=== PATIENT | female | born 1990 | race African-American/Black ===

== ENCOUNTER 2016-07-02 06:19 | Inpatient (IN) ==
[2016-07-02] MEDS ORDERED: ONDANSETRON 4 MG/2 ML VIAL IV PRN (07:55)
[2016-07-02] MEDS ORDERED: BUTORPHANOL 2 MG/ML VIAL IV PRN (07:55)
[2016-07-02] MEDS ORDERED: MEPERIDINE 50 MG/1 ML VIAL IV PRN (07:55)
[2016-07-02] MEDS ORDERED: OXYTOCIN/LR 20 UNIT/1,000 ML BAG IV SCH (08:00)
[2016-07-02 08:26] LABS: Basophils % 0.5 % (0.0-0.8); Eosinophils # 0.1 10*3/uL (0.0-0.87); Eosinophils % 1.4 % (0.00-10.9); Hematocrit 35.8 VOL% (35.7-47.0); Hemoglobin 12.1 GM/DL (12.0-16.0); Immature Granulocytes % 0.4 %; Immature Granulocytes Absolute 0.03 #; Lymphocytes # 1.9 10*3/uL (1.4-4.0); Lymphocytes % 24.6 % (21.3-54.2); Mean Corpuscular HGB Conc 33.8 GM/DL (32-36); Mean Corpuscular Hemoglobin 25 PG (27-34); Mean Corpuscular Volume 72.5 FL (87-102); Mean Platelet Volume 11.3 FL (9.6-12.0); Monocytes # 0.5 10*3/uL (0.11-0.8); Monocytes % 6.5 % (1.7-12.7); Neutrophils # 5.3 10*3/uL (1.4-7.4); Neutrophils % 66.6 % (38.7-73.9); Platelet Count 199 T/CUMM (130-400); Red Blood Count 4.94 MC/CUMM (3.8-5.5); Red Cell Distribution Width 19.1 % (9.3-17.3); White Blood Count 7.9 T/CUMM (4-12)
[2016-07-02] MEDS ORDERED: AMPICILLIN INJ 2,000 MG in SODIUM CHLORIDE 0.9% 100 ML IV ONE (08:41)
[2016-07-02 08:55] LABS: Albumin 2.6 G/DL (3.4-5.0); Bilirubin,Total 0.8 MG/DL (0.2-1.0); Calcium 8.8 MG/DL (8.5-10.1); Osmolality,Calculated 273.5 MOS/KG (273-304); Potassium 4.4 MMOL/L (3.5-5.1); Total Protein 6.5 G/DL (6.4-8.3)
[2016-07-02] MEDS ORDERED: FAMOTIDINE 20 MG/2 ML VIAL IV ONE (09:23)
[2016-07-02] MEDS ORDERED: CITRIC ACID/SODIUM CITRATE 30 ML UDCUP PO ONE (09:23)
[2016-07-02] MEDS ORDERED: ePHEDrine 50 MG/ML AMP IV PRN (09:23)
[2016-07-02] MEDS ORDERED: diphenhydrAMINE 50 MG/1 ML VIAL IV PRN ×2 (09:23)
[2016-07-02] MEDS ORDERED: LACTATED RINGERS 1,000 ML IV ONE (09:23)
[2016-07-02] MEDS ORDERED: LACTATED RINGERS 500 ML IV ONE (09:23)
[2016-07-02] MEDS ORDERED: PROMETHAZINE 25 MG/1 ML VIAL IM ONE (09:23)
[2016-07-02] MEDS ORDERED: hydrOXYzine HCL 25 MG/1 ML VIAL IM PRN (09:23)
[2016-07-02] MEDS: LACTATED RINGERS 1,000 ML IV SCH ×2 (09:30→23:59)
[2016-07-02] MEDS: AMPICILLIN INJ 1,000 MG in SODIUM CHLORIDE 0.9% 100 ML IV SCH (09:36)
[2016-07-02] MEDS: fentaNYL 2 MCG/ROPIV 0.2% EPID 150 ML EPIDURAL SCH (10:40)
[2016-07-02 12:02] LABS: Apearance,Urine CLEAR (Clear); Bilirubin,Urine Negative (Negative); Blood, Urine Negative (Negative); Glucose,Urine (UA) Negative (Negative); Ketones,Urine 20 mg/dL (Negative); Mucus,Urine Occasional /LPF (Occasional); Nitrite,Urine Negative (Negative); Protein,Urine Negative; RBC,Urine 1 /HPF (0-4); Squamous Epithelial Cell,Urine Occasional /HPF (0-10); Urine Color Straw (Yellow); Urine Specific Gravity 1.006 (1.001-1.035); Urine Urobilinogen < 2.0 EU/DL (0.2-1.0); WBC,Urine <1 /HPF (0-6)
--- NOTE | 2016-07-02 12:21 | OB/GYN History & Physical ---
History of Present Illness Chief complaint: For elective induction of labor History of present illness: Ms. Mcelroy is a 26 year old female who is a 2 para 1 who presented to the labor department for elective induction of labor due to term . Her KAEL is 07/09/2016 for an estimated gestational age of 39 weeks and 1 day. The risk and benefits of been thoroughly discussed with this patient and significant other and plan of care has been discussed with Dr. Walls, all parties are in agreement plan. The patient received her care through the [facility] and she received routine care. Her course was complicated by diabetes for which the patient maintain control with diet and insulin. The patient has had a previous vaginal delivery that infant weighed 8 pounds she reported no complications with that . labs: She is a positive, RPR is nonreactive, hepatitis B negative, HIV negative , the patient did have a positive chlamydia during this for which he was treated and test of cure was negative, rubella was immune, and GBS culture is positive. Home Medications Medication Instructions Recorded Confirmed Type Pnv No.95/Ferrous Fum/Folic AC 1 tablet PO DAILY 04/28/16 07/02/16 History [ Tablet] Insulin NPH [HumuLIN N] 10 unit SUBCUT AC BREAKFAST 06/15/16 07/02/16 History Allergies Allergy/AdvReac Type Severity Reaction Status Date / Time No Known Allergies Allergy Verified 06/22/16 13:28 12 point system: reviewed and no additional remarkable complaints except as stated Medical,Surgical,& Family Hx - Medical History Medical History: noncontributory Endocrine: History of: Diabetes Mellitus (NIDDM) (PT IS GESTATIONAL DIABETIC) Musculoskeletal: No history of: Amputation Reproductive: No history of: Ectopic , Complication - Surgical History Surgical History: noncontributory Thoracic Surgeries: Patient denies;: Organ Transplant, Lobectomy Neurologic Surgeries: Patient denies: Neurologic Surgery Abdominal Surgeries: Patient denies: Abdominal Surgery Reproductive Surgeries: Patient denies;: Section, Gynecologic Surgery - Family History Family History: Reports;: Family Hypertension Denies;: Family Anesthesia Reaction, Family Cancer, Family Diabetes, Family Heart Disease (Mother), Family Psychiatric Problems, Family Stroke - Social History Smoking Status: Never smoker Frequency of Alcohol Use: None Type of Drug Use: None Marital Status: Single Lives With:: Significant Other Functional capacity: independent ambulation 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 General appearance: no acute distress - Antepartum / Post Antepartum Exam Cervix -Dilatation: 5 cm Effacement: 70% Station: -1 Rupture: Intact Presentation: Vertex Heart Rate: 140s-150s Breast: bilateral: normal Abdomen obstetrics: Present: bowel sounds normal Vulva: bilateral: normal Vagina: Present: normal moisture, discharge (Bloody show) Uterus exam: Present: enlarged - Head Head exam: Present: normal inspection - ENT ENT exam: Present: normal exam - Respiratory Respiratory exam: Present: clear to auscultation bilaterally - Cardiovascular Cardiovascular exam: Present: regular rate and rhythm - GI/Abdominal GI/Abdominal exam: Present: normal bowel sounds, soft - Extremities Exam Extremities exam: Present: normal inspection - Back Exam Back exam: Present: normal inspection - Neurological Exam Neurological exam: Present: alert, oriented X3 - Psychiatric Psychiatric exam: Present: normal affect, normal mood - Skin Skin exam: Present: normal color, warm Assessment and Plan (1) Term Status: Acute Assessment and plan: Admit, IV fluids IV Pitocin per protocol Artificial rupture membranes when appropriate Epidural anesthesia if desired Internal monitors if indicated Anticipate Current Visit: Yes (2) Gestational diabetes Status: Acute Current Visit: No Results - Labs CBC & BMP: 07/02/16 08:15 07/02/16 08:15
--- NOTE | 2016-07-02 12:38 | Event Note ---
Stage I of labor Artificial rupture membranes clear fluid IV Pitocin Epidural anesthetic External monitoring category 1 Stage II Delivery of a female infant nuchal cord 1 Cord blood cord gas obtained Delivery time is 12:13 PM Apgars was 8 at 1 minute 9 at 5 minutes weight is pending at this time Female infant Stage III Spontaneous labor the placenta Estimated blood loss less than 300 cc 3 cord vessels Placenta was delivered manually at 12:15 PM Mother stable nursery in attendance.
--- NOTE | 2016-07-02 14:15 | Anesthesia Post-Op ---
Anesthesia Post OP - Post Ansesthetic Evaluation Patient seen in post op: Yes Resp: within normal limits CV: within normal limits Mental: within normal limits Temp: within normal limits [id number]: within normal limits Nausea and Vomiting: within normal limits Pain: within normal limits
[2016-07-02] MEDS: IBUPROFEN 800 MG TABLET PO PRN (20:00)
[2016-07-02] MEDS ORDERED: IBUPROFEN 800 MG TABLET ONE (20:06)
[2016-07-03] MEDS: LACTATED RINGERS 1,000 ML IV SCH (00:01)
[2016-07-03] MEDS: fentaNYL 2 MCG/ROPIV 0.2% EPID 150 ML EPIDURAL SCH (05:09)
[2016-07-03] MEDS: AMPICILLIN INJ 1,000 MG in SODIUM CHLORIDE 0.9% 100 ML IV SCH (05:09)
[2016-07-03 06:49] LABS: Hematocrit 29.2 VOL% (35.7-47.0); Hemoglobin 10.1 GM/DL (12.0-16.0); Mean Corpuscular HGB Conc 34.6 GM/DL (32-36); Mean Corpuscular Hemoglobin 25 PG (27-34); Mean Corpuscular Volume 72.1 FL (87-102); Red Blood Count 4.05 MC/CUMM (3.8-5.5); White Blood Count 10.9 T/CUMM (4-12)
[2016-07-03 06:50] LABS: Basophils # 0.1 10*3/uL (0.0-0.2); Basophils % 0.5 % (0.0-0.8); Eosinophils # 0.1 10*3/uL (0.0-0.87); Eosinophils % 1.3 % (0.00-10.9); Immature Granulocytes % 0.5 %; Immature Granulocytes Absolute 0.05 #; Lymphocytes # 2.3 10*3/uL (1.4-4.0); Lymphocytes % 20.6 % (21.3-54.2); Monocytes % 8.7 % (1.7-12.7); Neutrophils # 7.5 10*3/uL (1.4-7.4); Neutrophils % 68.4 % (38.7-73.9); Platelet Count 193 T/CUMM (130-400); Red Cell Distribution Width 18.8 % (9.3-17.3)
[2016-07-03 07:19] LABS: Hypochromasia 2+; Microcytosis 1+
[2016-07-03] MEDS: DOCUSATE SODIUM 100 MG CAPSULE PO SCH ×2 (08:46→20:00)
--- NOTE | 2016-07-03 14:19 | OB/GYN Progress Note ---
Assessment and Plan (1) Term Status: Acute Assessment and plan: Admit, IV fluids IV Pitocin per protocol Artificial rupture membranes when appropriate Epidural anesthesia if desired Internal monitors if indicated Anticipate Current Visit: Yes (2) Gestational diabetes Status: Acute Current Visit: No (3) Vaginal delivery Status: Acute Assessment and plan: Initiate routine orders. 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 Exam KEY HOLDER - Constitutional Vitals: Vital Signs Temp Pulse Resp BP Pulse Ox 07/03/16 11:33 97.5 F L 74 20 128/82 98 07/03/16 07:24 97.8 F 77 18 126/84 97 07/03/16 04:00 97.6 F 71 18 118/74 99 07/03/16 02:00 20 07/03/16 00:00 97.9 F 71 18 125/78 99 07/02/16 20:00 97.3 F L 79 18 135/102 99 07/02/16 15:50 97.3 F L 72 18 126/88 99 07/02/16 15:20 97.3 F L 71 18 135/83 99 General appearance: no acute distress - Antepartum / Post Post Exam Breast: bilateral: normal Abdomen obstetrics: Present: bowel sounds normal Vagina: Present: normal moisture, discharge (Light lochia rubra) Cervix: Present: normal Uterus exam: Present: enlarged (Fundus firm and midline) Anus/Rectum: Present: normal perianal skin - Head Head exam: Present: normal inspection - Respiratory Respiratory exam: Present: clear to auscultation bilaterally - Cardiovascular Cardiovascular exam: Present: regular rate and rhythm - GI/Abdominal GI/Abdominal exam: Present: normal bowel sounds, soft - Extremities Exam Extremities exam: Present: normal inspection - Back Exam Back exam: Present: normal inspection - Neurological Exam Neurological exam: Present: alert, oriented X3 - Psychiatric Psychiatric exam: Present: normal affect, normal mood - Skin Skin exam: Present: normal color, warm Results - Labs CBC & BMP: 07/03/16 06:13 07/02/16 08:15
--- NOTE | 2016-07-03 14:50 | Discharge Summary ---
Hospital Course - Hospital Course Hospital Course: Ms. Mcelroy presented for elective induction of labor due to term . She subsequently delivered a viable infant with no complications. She has followed a normal course and she has done well. Her bleeding is minimal with no odor. She is voiding without difficulty. Her vital signs and lab values are stable. She is bonding well with her infant. Her perineum is intact with no edema. Her fundus is firm and midline. She has normal bowel sounds. She will be discharged home with prescriptions for pain and follow-up appointment in our office. Diagnosis - Discharge Diagnosis (1) Term Status: Acute (2) Gestational diabetes Status: Acute (3) Vaginal delivery Status: Acute Specialty Discharge - Follow Up or Referrals Follow up with: Radha Walls MD [Physician] - 08/13/16 10:30 am Discharge Plan - Discharge Data Disposition: Disch To Home/Self Care Condition at Discharge: Stable Discharge Diet: advance to your usual diet Activity: resume usual activities as tolerated Hygiene: may shower Weight Bearing at Discharge: weight bear as tolerated Driving: no restrictions Contact your physician if you experience:: fever over 101, pain uncontrolled by pain medications - Discharge Medications New Ibuprofen Tab [Motrin Tab] 800 mg PO Q6H PRN #45 tablet PRN Reason: Pain Acetamin/Codeine 300-30 Tab [Tylenol/Codeine #3] 2 tablet PO Q4H #30 tablet Continue Pnv No.95/Ferrous Fum/Folic AC [ Tablet] 1 tablet PO DAILY Insulin NPH [HumuLIN N] 10 unit SUBCUT AC BREAKFAST - Follow Up or Referral Follow Up: Radha Walls MD [Physician] - 08/13/16 10:30 am - Forms/Instructions Instructions: Vaginal Delivery (DC), Bleeding (DC) Exam - Constitutional Vitals: Period Temp Pulse Resp BP Sys/Smith Pulse Ox Last 24 Hr 97.3 F-97.9 F 71-79 18-20 118-135/74-102 97-99 General appearance: no acute distress - Head Head exam: Present: normal inspection - Respiratory Respiratory exam: Present: clear to auscultation bilaterally - Cardiovascular Cardiovascular exam: Present: regular rate and rhythm - GI/Abdominal GI/Abdominal exam: Present: normal bowel sounds, soft - Extremities Exam Extremities exam: Present: normal inspection - Back Exam Back exam: Present: normal inspection - Neurological Exam Neurological exam: Present: alert, oriented X3 - Psychiatric Psychiatric exam: Present: normal affect, normal mood - Skin Skin exam: Present: normal color, warm Discharge Results Labs on day of discharge: Labs from last 24 hours 07/03/16 07/03/16 07/03/16 06:13 05:41 00:38 WBC 10.9 D RBC 4.05 Hgb 10.1 L D Hct 29.2 L MCV 72.1 L MCH 25 L MCHC 34.6 RDW 18.8 H Plt Count 193 MPV 12.0 Neut % (Auto) 68.4 Lymph % (Auto) 20.6 L [place] % (Auto) 8.7 Eos % (Auto) 1.3 Baso % (Auto) 0.5 Neut # (Auto) 7.5 H Lymph # (Auto) 2.3 [place] # (Auto) 1.0 H Eos # (Auto) 0.1 Baso # (Auto) 0.1 Immature Gran % 0.5 Nucleated RBC % 0.0 Immature Gran # 0.05 Nucleated RBCs # 0.00 Hypochromasia 2+ Microcytosis 1+ POC Glucose 80 133 H 07/02/16 18:35 WBC RBC Hgb Hct MCV MCH MCHC RDW Plt Count MPV Neut % (Auto) Lymph % (Auto) [place] % (Auto) Eos % (Auto) Baso % (Auto) Neut # (Auto) Lymph # (Auto) [place] # (Auto) Eos # (Auto) Baso # (Auto) Immature Gran % Nucleated RBC % Immature Gran # Nucleated RBCs # Hypochromasia Microcytosis POC Glucose 138 H DS: Provider Date of admission: 07/02/16 07:56 Primary care physician: . No PCP Attending physician on admission: Radha Walls MD Consults: 07/02/16 07:56 Consult to Anesthesiology [CONS] Routine Consulting Provider: Reason for Anesthesiology: Epidural Consult Comment: Epidural for pain managment Discharging clinician: Karolina Lozada CNM Expected date of discharge: 07/04/16
[2016-07-03] MEDS: IBUPROFEN 800 MG TABLET PO PRN (20:05)
[2016-07-04 09:13] VITALS: BP 135/71
[2016-07-04] MEDS: DOCUSATE SODIUM 100 MG CAPSULE PO SCH (09:30)
== END 2016-07-04 13:10 | disposition home or self-care (01) | DRG 560 ==
LOC: N.LD 06:19 → N.LDOUT 06:19 → N.LD 07:56 → N.OB 15:40
PROVIDERS: ADMIT Obstetrics & Gynecology; ATTEND Obstetrics & Gynecology

== ENCOUNTER 2018-06-14 11:00 | Inpatient (IN) ==
[2018-06-14] MEDS ORDERED: LACTATED RINGERS 1,000 ML IV ONE (11:17)
[2018-06-14] MEDS ORDERED: BUTORPHANOL 1 MG/ML VIAL IV PRN (11:17)
[2018-06-14] MEDS ORDERED: ONDANSETRON 4 MG/2 ML VIAL IV PRN (11:17)
[2018-06-14] MEDS ORDERED: MEPERIDINE 50 MG/1 ML VIAL IV PRN (11:17)
[2018-06-14] MEDS ORDERED: LACTATED RINGERS 1,000 ML IV SCH (11:30)
[2018-06-14] MEDS ORDERED: OXYTOCIN/LR 20 UNIT/1,000 ML BAG IV SCH (11:30)
[2018-06-14] MEDS ORDERED: AMPICILLIN INJ 2,000 MG in SODIUM CHLORIDE 0.9% 100 ML IV ONE (12:00)
[2018-06-14 12:16] LABS: INR 0.9; PT Patient Result 9.4 SECS; Partial Thromboplastin Time 26.1 SECS (0-40)
[2018-06-14] MEDS ORDERED: AMPICILLIN 2,000 MG VIAL ONE (12:18)
[2018-06-14 12:25] LABS: Basophils % 0.5 % (0.0-0.8); Eosinophils % 0.5 % (0.00-10.9); Hematocrit 30.4 VOL% (35.7-47.0); Hemoglobin 9.9 GM/DL (12.0-16.0); Immature Granulocytes % 0.7 %; Immature Granulocytes Absolute 0.06 #; Lymphocytes # 1.8 10*3/uL (1.4-4.0); Lymphocytes % 21.7 % (21.3-54.2); Mean Corpuscular HGB Conc 32.6 GM/DL (32-36); Mean Corpuscular Volume 69.6 FL (87-102); Mean Platelet Volume 10.8 FL (9.6-12.0); Monocytes % 6.9 % (1.7-12.7); Neutrophils % 69.7 % (38.7-73.9); Platelet Count 229 T/CUMM (130-400); Red Blood Count 4.37 MC/CUMM (3.8-5.5); Red Cell Distribution Width 18.2 % (9.3-17.3); White Blood Count 8.1 T/CUMM (4-12)
[2018-06-14] MEDS ORDERED: OXYTOCIN/LR 20 UNIT/1,000 ML BAG IV ONE ×3 (12:28→21:15)
[2018-06-14] MEDS ORDERED: hydrALAZINE 20 MG/1 ML VIAL ONE (12:28)
[2018-06-14 12:29] LABS: Hypochromasia 1+
[2018-06-14 12:30] LABS: Platelet Estimate Adequate
[2018-06-14 12:40] LABS: Alanine Aminotransferase 12 U/L (13-56); Albumin 2.4 G/DL (3.4-5.0); Alkaline Phosphatase 163 U/L (45-117); Aspartate Amino Transferase 10 U/L (0-37); Bilirubin,Direct < 0.100 MG/DL (0.0-0.20); Bilirubin,Total < 0.39 MG/DL (0.2-1.0); Blood Urea Nitrogen 8 MG/DL (7-18); Calcium 8.8 MG/DL (8.5-10.1); Glucose 121 MG/DL (74-106); Osmolality,Calculated 271.8 MOS/KG (273-304); Total Protein 6.6 G/DL (6.4-8.3); Uric Acid 4.4 MG/DL (2.6-6.0)
[2018-06-14] MEDS: hydrALAZINE 20 MG/1 ML VIAL IV PRN ×2 (12:40→13:10)
[2018-06-14] MEDS ORDERED: ePHEDrine 50 MG/ML AMP IV PRN (13:06)
[2018-06-14] MEDS ORDERED: FAMOTIDINE 20 MG/2 ML VIAL IV ONE (13:06)
[2018-06-14] MEDS ORDERED: CITRIC ACID/SODIUM CITRATE 30 ML UDCUP PO ONE (13:06)
[2018-06-14] MEDS ORDERED: NALOXONE 0.4 MG/ML VIAL IV PRN (13:06)
[2018-06-14] MEDS ORDERED: PROMETHAZINE 25 MG/1 ML VIAL IM ONE (13:06)
[2018-06-14] MEDS ORDERED: hydrOXYzine HCL 25 MG/1 ML VIAL IM PRN (13:06)
[2018-06-14] MEDS ORDERED: diphenhydrAMINE 50 MG/1 ML VIAL IV PRN ×2 (13:06)
[2018-06-14] MEDS ORDERED: fentaNYL 2 MCG/ROPIV 0.2% EPID 100 ML EPIDURAL SCH (13:30)
[2018-06-14] MEDS ORDERED: miSOPROStol 200 MCG TABLET ONE (15:52)
[2018-06-14] MEDS ORDERED: CARBOPROST TROMETHAMINE 250 MCG/ML AMP IM ONE (15:53)
[2018-06-14] MEDS ORDERED: AMPICILLIN INJ 1,000 MG in SODIUM CHLORIDE 0.9% 100 ML IV SCH (16:00)
[2018-06-14 18:12] LABS: Cord Venous Blood PCO2 55.4 MMHG; Cord Venous Blood PO2 22.6
[2018-06-14] MEDS ORDERED: WITCH HAZEL PADS 100/JAR TOP PRN (19:21)
[2018-06-14] MEDS ORDERED: HYDROCORTISONE 2.5% RECTAL CREAM 30 GM TUBE TOP PRN (19:21)
[2018-06-14] MEDS ORDERED: oxyCODONE/ACETAMINOPHEN 5-325 MG TABLET PO PRN ×2 (19:21)
[2018-06-14] MEDS ORDERED: BISACODYL 10 MG SUPP RECTAL PRN (19:21)
[2018-06-14] MEDS ORDERED: ACETAMINOPHEN/CODEINE 300-30 MG TABLET PO PRN (19:21)
[2018-06-14] MEDS ORDERED: ACETAMINOPHEN 325 MG TABLET PO PRN (19:21)
[2018-06-14] MEDS ORDERED: MEASLES/MUMPS/RUBELLA VACCINE 0.5 ML VIAL SUBCUT ONE (19:21)
[2018-06-14] MEDS ORDERED: LANOLIN 50% CREAM 0.3 OZ TUBE TOP PRN (19:21)
[2018-06-14] MEDS ORDERED: BENZOCAINE 20%/MENTHOL 0.5% SPRAY 56 GM CAN TOP PRN (19:21)
[2018-06-14] MEDS ORDERED: RHO(D) IMMUNE GLOBULIN 300 MCG SYRINGE IM ONE (19:21)
[2018-06-14] MEDS ORDERED: DIPH/TET/ACEL PERT BOOSTER VACCINE 0.5 ML VIAL IM ONE (19:21)
[2018-06-14] MEDS: IBUPROFEN 800 MG TABLET PO PRN (20:45)
[2018-06-14] MEDS: DOCUSATE SODIUM 100 MG CAPSULE PO SCH (21:11)
[2018-06-15] MEDS: IBUPROFEN 800 MG TABLET PO PRN (04:57)
[2018-06-15 05:54] LABS: Basophils % 0.3 % (0.0-0.8); Eosinophils % 0.3 % (0.00-10.9); Hematocrit 27.6 VOL% (35.7-47.0); Immature Granulocytes % 0.4 %; Immature Granulocytes Absolute 0.06 #; Lymphocytes # 1.7 10*3/uL (1.4-4.0); Lymphocytes % 12.5 % (21.3-54.2); Mean Corpuscular HGB Conc 32.6 GM/DL (32-36); Mean Platelet Volume 11.4 FL (9.6-12.0); Monocytes % 7.8 % (1.7-12.7); Neutrophils % 78.7 % (38.7-73.9); Platelet Count 193 T/CUMM (130-400); Red Cell Distribution Width 18.1 % (9.3-17.3); White Blood Count 13.7 T/CUMM (4-12)
[2018-06-15 06:18] LABS: Hypochromasia 1+; Ovalocytes Slight; Platelet Estimate Adequate
[2018-06-15 06:19] LABS: Microcytosis Slight
[2018-06-15] MEDS: DOCUSATE SODIUM 100 MG CAPSULE PO SCH ×2 (09:03→20:58)
[2018-06-16 07:54] VITALS: BP 144/89
[2018-06-16] MEDS: DOCUSATE SODIUM 100 MG CAPSULE PO SCH (08:45)
== END 2018-06-16 13:50 | disposition home or self-care (01) | DRG 560 ==
LOC: N.LDOUT 11:00 → N.LD 11:00 → OBSVTOIN 11:17 → N.OB 06-15 14:52
PROVIDERS: ADMIT Obstetrics & Gynecology; ATTEND Obstetrics & Gynecology